=== PATIENT | male | born 1980 | race Caucasian/White ===

== ENCOUNTER 2024-01-07 08:42 | Outpatient (AMB) | payer OTHER, SELFPAY ==
[2024-01-07 08:49] VITALS: BP 130/72; PULSE 73; O2SAT 98; BMI 31.1
--- NOTE | 2024-01-07 08:49 | MHC.PC.OV ---
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 Accompanied by: Self / Same As Patient Allergies No Known Allergies Allergy (Verified 01/07/24 08:49) Medication List - Last Reconciled 01/08/24 by Jovany Renteria MD No Known Home Meds Tobacco use date assessed: 01/07/24 Dental Screening Dental Screen Date: 01/07/24 Did you have a dental visit in the last 12 months?: Yes Did you have a dental problem in the last 6 months where you did not have access to dental care?: No Was dental information given to patient?: Patient has dentist HPI new patient HPI Details healthy; has right sised temoral headaches and possible right ih PFSH Social History Housing: House Patient Tobacco Use Status: Never used Tobacco e-Cigarette/Vaping Use: Never Used Second Hand Smoke Exposure: No service: No Current occupational status: employed Cognitive needs: No Hearing needs: No Vision needs: No Questionnaire Thrive Questionnaire Date Thrive assessed: 01/07/24 AUDIT C Alcohol Use Questionnaire (AUDIT-C) 1. How often do you have a drink containing alcohol?: Never 3. How often do you have six or more drinks on one occasion?: Never Total Score: 0 EVELYN-7 AMB Questionnaire EVELYN-7 Date EVELYN - 7 assessed: 01/07/24 Feeling nervous, anxious, or on edge: 0 = Not at all Not being able to stop or control worryin = Not at all Worrying too much about different things: 0 = Not at all Trouble relaxin = Not at all Being so restless that it is hard to sit still: 0 = Not at all Becoming easily annoyed or irritable: 0 = Not at all Feeling afraid as if something awful might happen: 0 = Not at all Total EVELYN-7 score (0-4 normal; 5-9 mild; 10-14 moderate; 15-21 severe): 0 Source: Developed by Drs. Davion Katz, Cassie uEbanks, Lonny Salcedo and colleagues, with an educational simran from [employer]. Review of Systems Const Denies chills, Denies fatigue, Denies headache(s) and Denies weight loss Eyes Denies change in vision, Denies diplopia and Denies eye pain ENT Denies vertigo, Denies dizziness, Denies headache(s) and Denies nasal discharge Card Denies chest pain, Denies rapid heart rate and Denies dyspnea on exertion Resp Denies chest congestion, Denies cough, Denies pain with cough and Denies dyspnea on exertion GI Denies abdominal pain, Denies hematochezia and Denies change in bowel habits Musc Denies myalgias, Denies arthralgias and Denies joint swelling Skin/Breast Denies lesions and Denies unusual bruising Neuro Denies vertigo, Denies dizziness, Denies headache(s) and Denies focal weakness Endo Denies fatigue Physical exam (Primary Care) Vital Signs: Last Vital Signs Pulse 73 01/07/24 08:49 BP 130/72 01/07/24 08:49 Pulse Ox 98 01/07/24 08:49 Oxygen Delivery Method Room Air 01/07/24 08:49 BMI result Body Mass Index 31.1 Tobacco/Smoking Status: Tobacco use Status Tobacco use date assessed 01/07/24 01/07/24 08:50 Patient Tobacco Use Status Never used Tobacco 01/07/24 08:54 Thrive Assessment: Date of Thrive Assessment Date Thrive assessed 01/07/24 01/07/24 08:50 Const General: cooperative, healthy appearing and no acute distress Orientation/consciousness: oriented to person, oriented to place and oriented to time [facility] Head: Yes normal to inspection, Yes normocephalic and Yes atraumatic Mouth: Normal oral and palatal mucosa present and tongue normal Throat: Yes posterior oropharynx normal and Yes uvula midline Eyes General: appearance normal, both eyes and all related structures Neck Neck: Yes normal visual inspection, Yes full ROM and Yes no lymphadenopathy Thyroid: Thyroid normal Carotids: normal carotid upstroke Chest Chest palpation & inspection: normal inspection of the chest Resp Effort & Inspection: normal respiratory effort and able to speak in complete sentences Auscultation: clear to auscultation bilaterally Cardio Jugular venous distension: no JVD Palpation: normal PMI Rate: regular rate Rhythm: regular rhythm Heart sounds: S1 normal heart sound present and S2 normal heart sound present GI Other: small reducible left inguinal hernia Palpation (GI): Soft to palpation and No hepatosplenomegaly present Auscultation: normal bowel sounds General: Yes no CVA tenderness Back/Spine/Pelvis Back: no CVA tenderness Skin General skin exam: no rashes or lesions noted Neuro General: oriented to person, oriented to place and oriented to time Extrem General: Yes normal to inspection and Yes full ROM Assessment and Plan Assessment & Plan (1) Physical exam: Code(s): Z00.00 - Encounter for general adult medical examination without abnormal findings (2) Headache: Code(s): R51.9 - Headache, unspecified (3) Left inguinal hernia: Code(s): K40.90 - Unilateral inguinal hernia, without obstruction or gangrene, not specified as recurrent Orders: Orders Thyroid Stimulating Hormone 01/07/24 Z13.29 - Encounter for screening for other suspected endocrine disorder Complete Blood Count Auto Diff 01/07/24 Z13.0 - Encounter for screening for diseases of the blood and blood-forming organs and certain disorders involving the immune mechanism CT head/brain wo IV con 01/07/24 R51.9 - Headache, unspecified Comprehensive Kegley. Panel Fast 01/07/24 Z13.9 - Encounter for screening, unspecified Lipid Panel 01/07/24 Z13.220 - Encounter for screening for lipoid disorders Erythrocyte Sedimentation Rate 01/07/24 R51.9 - Headache, unspecified Referrals General Surgery Referral K40.90 - Unilateral inguinal hernia, without obstruction or gangrene, not specified as recurrent Coding Level of Care Code New Pt Prev Care 40-64y(70127) Diagnoses Physical exam Z00.00 Headache R51.9 Left inguinal hernia K40.90
== END 2024-01-07 09:26 | disposition home or self-care (01) ==
PROVIDERS: PCP Internal Medicine; Visit Provider Internal Medicine
DX: Z00.00 Encounter for general adult medical examination without abnormal findings (principal); R51.9 Headache, unspecified; K40.90 Unilateral inguinal hernia, without obstruction or gangrene, not specified as recurrent
CPT/HCPCS: 99386

== ENCOUNTER 2024-01-23 07:22 | Outpatient (REF) | payer OTHER, SELFPAY ==
--- NOTE | ~2024-01-23 | CT_ITS ---
EXAMINATION: CT HEAD WITHOUT IV CONTRAST INDICATION: Headache. COMPARISON: None available. TECHNIQUE: Multidetector CT acquisitions of the head was obtained without IV contrast. This CT examination was performed using dose optimization techniques as appropriate, variously including the following: *Automated exposure control *Adjustment of mA and/or kV according to patient size (this includes techniques or standardized protocols for targeted exams where dose is matched to indication/reason for exam; i.e. extremities or head) *Use of iterative reconstruction technique FINDINGS: There is no intracranial hemorrhage, hydrocephalus, extra-axial surface collection, midline shift, or other herniation pattern. Lakhani to white matter differentiation is diffusely maintained without evidence of an evolved acute territorial infarct. The basilar cisterns are preserved. No significant soft tissue abnormality. No acute osseous abnormality. The paranasal sinuses and the mastoid air cells are well aerated. CT/CT head/brain wo IV con IMPRESSION: No acute intracranial abnormality.
== END 2024-01-23 07:23 | disposition home or self-care (01) ==
LOC: HO.CT 07:22
PROVIDERS: PCP Internal Medicine; Visit Provider Internal Medicine
DX: R51.9 Headache, unspecified (principal)
CPT/HCPCS: 70450

== ENCOUNTER 2024-01-28 08:37 | Outpatient (AMB) | payer OTHER, SELFPAY ==
--- NOTE | 2024-01-28 08:41 | A.OFFVIS_ITS ---
Vital Signs 01/28/24 08:44 Height 6 ft 3 in Weight 247 lb BMI 30.9 BP 133/83 Blood Pressure Location Rt brachial Position Sitting Pulse 66 Intake Visit Reasons: Unilateral inguinal hernia Intake Note: Patient referred by pcp Dr. Renteria for [facility]. First noticed 2-3wks. Patient c/o: painful, uncomfortable when sitting in the car for too long. Nausea, bulging out when laying down. Monitor Worker Required: No Accompanied by: Self / Same As Patient Allergies No Known Allergies Allergy (Verified 01/28/24 08:45) HPI Comments Details: Patient presents with a several week history of left groin pain and swelling. At his place of employment, he noticed while doing heavy lifting/straining, he developed the above-mentioned symptoms. Patient states she does a fair amount of strenuous activities at his work place. Because of progression of left groin discomfort, he was seen by his medical doctor who in turn referred him to surgery for further evaluation. Patient otherwise tolerating regular diet. He is regular bowel habits. No other significant past medical or surgical history. Chart was reviewed and patient evaluated [facility] Surgical History (Updated 01/28/24 @ 08:43 by MAX Segal) History of lumbar laminectomy Social History Housing: House Patient Tobacco Use Status: Never used Tobacco e-Cigarette/Vaping Use: Never Used Second Hand Smoke Exposure: No service: No Current occupational status: employed Cognitive needs: No Hearing needs: No Vision needs: No Physical Exam Vital Signs: Last Vital Signs Pulse 66 01/28/24 08:44 BP 133/83 01/28/24 08:44 BMI result Body Mass Index 30.9 Chest Other: Chest breath sounds bilaterally, HS 1 in 2 GI Other: Patient was examined both supine and standing with Valsalva. Right groin negative. Genitalia within normal limits. Very large reducible left inguinal hernia. Assessment & Plan Assessment & Plan (1) Left inguinal hernia: Code(s): K40.90 - Unilateral inguinal hernia, without obstruction or gangrene, not specified as recurrent Category: Medical Plan Patient wishes to have his left inguinal hernia repaired. Risks, benefits, and alternatives of open left inguinal hernia repair with mesh were reviewed the patient and included but not limited to bleeding, infection, recurrence, numbness, pain, scarring and the patient wished to proceed. All questions answered. Arrangements were made for this. Coding Level of Care Code New Pt Level 5 (51593) Diagnoses Left inguinal hernia K40.90
[2024-01-28 08:44] VITALS: BP 133/83; PULSE 66; BMI 30.9
== END 2024-01-28 08:53 | disposition home or self-care (01) ==
PROVIDERS: PCP Internal Medicine; Visit Provider Surgery
DX: K40.90 Unilateral inguinal hernia, without obstruction or gangrene, not specified as recurrent (principal)
CPT/HCPCS: 99204

== ENCOUNTER → 2024-01-28 08:37 | Outpatient (BNVA) | payer OTHER, SELFPAY | PROVIDERS: PCP Internal Medicine; Visit Provider Surgery ==

== ENCOUNTER 2024-02-03 07:20 | Outpatient (REF) | payer OTHER, SELFPAY ==
[2024-02-03 10:10] LABS: MANUAL DIFF FLAG NO
[2024-02-03 10:26] LABS: Basophils Absolute Auto 0.1 X10*3/uL (0.0-0.2); Eosinophils Absolute Auto 0.4 X10*3/uL (0.0-0.4); Eosinophils Percent Auto 5.3 % (0-4); Hematocrit 43.9 % (42.0-52.0); Hemoglobin 14.6 g/dl (14.0-18.0); Imm Gran Abs Auto 0.02 X10*3/uL (0.00-0.03); Imm Gran Pct Auto 0.3 % (0.0-0.4); Lymphocytes Absolute Auto 2.4 X10*3/uL (1.2-4.9); Lymphocytes Percent Auto 32.2 % (20-40); Mean Corpuscular HGB Conc 33.3 g/dl (31.0-36.0); Mean Corpuscular Hemoglobin 30.7 pg (27.0-33.0); Mean Corpuscular Volume 92.2 fL (80.0-98.0); Mean Platelet Volume 9.7 fL (9.4-12.4); Monocytes Absolute Auto 0.7 X10*3/uL (0.1-1.2); Monocytes Percent Auto 9.4 % (2-11); Neutrophils Absolute Auto 3.8 x10*3/uL (2.0-8.3); Neutrophils Percent Auto 51.8 % (45-73); Platelet Count 285 X10*3/uL (160-400); Red Blood Count 4.76 X10*6/uL (4.60-5.80); White Blood Count 7.3 X10*3/uL (4.8-10.8)
[2024-02-03 11:09] LABS: Erythrocyte Sedimentation Rate 2 MM/HR (0-15)
[2024-02-03 11:11] LABS: Alanine Aminotransferase 37 U/L (0-40); Albumin Level 4.1 g/dL (3.5-5.0); Alkaline Phosphatase 47 U/L (39-117); Anion Gap 12 (12-20); Aspartate Amino Transferase 22 U/L (5-37); Bilirubin Total 0.4 mg/dL (0.0-1.0); Blood Urea Nitrogen 13 mg/dL (9-16); Carbon Dioxide 23 mmol/L (22-29); Chloride 108 mmol/L (96-108); Cholesterol 188 mg/dL (<200); Estimated Glomerular Filt Rate > 60; Glucose Fasting 96 mg/dL (60-99); HDL Cholesterol 43 mg/dL (>40); LDL Cholesterol Calculated 109 mg/dL (<100); Potassium 4.2 mmol/L (3.3-5.1); Sodium 139 mmol/L (135-145); Thyroid Stimulating Hormone 1.98 uIU/mL (0.32-4.0); Triglycerides 184 mg/dL (<150)
== END 2024-02-03 07:21 | disposition home or self-care (01) ==
LOC: HO.HMGCLDS 07:20
PROVIDERS: PCP Internal Medicine; Visit Provider Internal Medicine
DX: R51.9 Headache, unspecified (principal); Z13.0 Encounter for screening for diseases of the blood and blood-forming organs and certain disorders involving the immune mechanism; Z13.9 Encounter for screening, unspecified; Z13.220 Encounter for screening for lipoid disorders; Z13.29 Encounter for screening for other suspected endocrine disorder
CPT/HCPCS: 36415; 80053; 80061; 84443; 85025; 85652

== ENCOUNTER 2024-02-04 14:30 | Outpatient (AMB) | payer OTHER, SELFPAY ==
[2024-02-04 14:31] VITALS: BP 140/82; PULSE 70; O2SAT 98; BMI 31.4
--- NOTE | 2024-02-04 14:31 | A.OFFPC_ITS ---
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 Accompanied by: Self / Same As Patient Allergies No Known Allergies Allergy (Verified 02/04/24 14:32) Medication List - Last Reconciled 02/05/24 by Jovany Renteria MD No Known Home Meds Tobacco use date assessed: 01/07/24 Dental Screening Dental Screen Date: 01/07/24 HPI 4 weeks f/u HPI Details headaches; stable; labs and ct nl [facility] Surgical History (Updated 01/28/24 @ 08:43 by MAX Segal) History of lumbar laminectomy Social History Housing: House Patient Tobacco Use Status: Never used Tobacco e-Cigarette/Vaping Use: Never Used Second Hand Smoke Exposure: No service: No Current occupational status: employed Cognitive needs: No Hearing needs: No Vision needs: No Questionnaire PHQ-9 Over the last 2 weeks, how often have you been bothered by any of the following problems? 1. Little interest or pleasure in doing things: not at all 2. Feeling down, depressed, or hopeless: not at all 3. Trouble falling or staying asleep, or sleeping too much: not at all 4. Feeling tired or having little energy: not at all 5. Poor appetite or overeating: not at all 6. Feeling bad about yourself - or that you are a failure or have let yourself or your family down: not at all 7. Trouble concentrating on things, such as reading the newspaper or watching television: not at all 8. Moving or speaking so slowly that other people could have noticed. Or the opposite - being so fidgety or restless that you have been moving around a lot more than usual: not at all 9. Thoughts that you would be better off or of hurting yourself in some way: not at all Total score: 0 Source: Developed by Drs. Davion Katz, Cassie Eubanks, Lonny Salcedo and colleagues, with an educational simran from [employer]. Thrive Questionnaire Date Thrive assessed: 01/07/24 EVELYN-7 AMB Questionnaire EVELYN-7 Date EVELYN - 7 assessed: 01/07/24 Source: Developed by Drs. Davion Katz, Cassie Eubanks, Lonny Salcedo and colleagues, with an educational simran from [employer]. Review of Systems Const Denies chills, Denies headache(s) and Denies weight loss ENT Denies headache(s) Card Denies chest pain, Denies syncope, Denies irregular heart rhythm and Denies dyspnea Resp Denies chest congestion, Denies cough and Denies dyspnea GI Denies abdominal pain, Denies change in stool character, Denies nausea and Denies vomiting Musc Denies deformity and Denies joint swelling Neuro Denies syncope and Denies headache(s) Physical exam (Primary Care) Vital Signs: Last Vital Signs Pulse 70 02/04/24 14:31 BP 140/82 H 02/04/24 14:31 Pulse Ox 98 02/04/24 14:31 Oxygen Delivery Method Room Air 02/04/24 14:31 BMI result Body Mass Index 31.4 Tobacco/Smoking Status: Tobacco use Status Tobacco use date assessed 01/07/24 02/04/24 14:31 Patient Tobacco Use Status Never used Tobacco 02/04/24 14:31 e-Cigarette/Vaping Use Never Used 02/04/24 14:31 PHQ-9: PHQ-9 Score PHQ-9: Total score 0 02/04/24 14:35 Thrive Assessment: Date of Thrive Assessment Date Thrive assessed 01/07/24 02/04/24 14:31 Const General: cooperative, comfortable, no acute distress and alert Neck Neck: Yes no lymphadenopathy Thyroid: Thyroid normal Resp Effort & Inspection: normal respiratory effort Auscultation: clear to auscultation bilaterally Percussion: percussion normal Cardio Jugular venous distension: no JVD Palpation: normal PMI Rate: regular rate Rhythm: regular rhythm Heart sounds: S1 normal heart sound present and S2 normal heart sound present GI Inspection: Yes normal to inspection Palpation (GI): No hepatosplenomegaly present Skin General skin exam: no rashes or lesions noted Extrem General: Yes no clubbing, cyanosis or edema Assessment and Plan Assessment & Plan (1) Headache: Code(s): R51.9 - Headache, unspecified Plan: conservative care Coding Level of Care Code Est Pt Level 3 (32204) Diagnoses Headache R51.9
== END 2024-02-04 14:53 | disposition home or self-care (01) ==
PROVIDERS: PCP Internal Medicine; Visit Provider Internal Medicine
DX: R51.9 Headache, unspecified (principal)
CPT/HCPCS: 99213

== ENCOUNTER 2024-02-20 09:27 | Day surgery (SDC) | payer OTHER, SELFPAY ==
[2024-02-18 11:52] VITALS: BMI 31.4
--- NOTE | 2024-02-18 14:16 | HO.ANESPROP2 ---
Documented by User: Alissa Hernandez NP 02/18/24 14:17 HPI - Anesthesia Eval Consult details Narrative: 43yo M for OPEN Hernia Inguinal Reducible PMFSH Active Problems Active Problems: All Active Problems Left inguinal hernia (Acute) Headache (Acute) Physical exam (Acute) Past Medical History Medical History No pertinent past medical history Surgical History Surgical History History of lumbar laminectomy Social History Social History Housing: House Patient Tobacco Use Status: Never used Tobacco e-Cigarette/Vaping Use: Never Used Second Hand Smoke Exposure: No Advance Directives Information Provided: Yes service: No Current occupational status: employed Cognitive needs: No Hearing needs: No Vision needs: No Meds Allergies Allergy/AdvReac Type Severity Reaction Status Date / Time No Known Allergies Allergy Verified 02/20/24 09:46 Exam Height,Weight and Vital Signs: Height 6 ft 3 in Weight 113.852 kg Pertinent Lab Results Pertinent Lab Results: Laboratory Tests 02/03/24 02/03/24 07:54 07:57 WBC 7.3 Hgb 14.6 Hct 43.9 Plt Count 285 Sodium 139 Potassium 4.2 Chloride 108 Carbon Dioxide 23 BUN 13 Creatinine 0.85 Assessment and Plan Assessment Anesthesia Assessment: Chart Reviewed Documented by User: Jory Jorgensen MD 02/20/24 10:06 PMFSH Past Medical History Medical History No pertinent past medical history Surgical History Surgical History History of lumbar laminectomy History of Problems with Anesthesia: No Social History Social History Housing: House Patient Tobacco Use Status: Never used Tobacco e-Cigarette/Vaping Use: Never Used Second Hand Smoke Exposure: No Advance Directives Information Provided: Yes service: No Current occupational status: employed Cognitive needs: No Hearing needs: No Vision needs: No Meds Allergies Allergy/AdvReac Type Severity Reaction Status Date / Time No Known Allergies Allergy Verified 02/20/24 09:46 Exam Airway Mallampati Class: III TM Dist: >3cm Neck ROM: Full Loose/Missing/Broken Teeth: No Heart: RRR Lungs: CTA Assessment and Plan Assessment Anesthesia Assessment: Anesthesia Plan Discussed Final Anesthetic Review History of Problems with Anesthesia: No NPO: Yes ASA Class: I Final Preanesthetic Review: Meds/Allgs Chart Reviewed, Consent Obtained/Reviewed and Anes Risks/Benef Reviewed Patient Risk: Low Procedure Risk: Low Anesthetic Plan Anesthetic Plan: GA Disposition: Standard PACU
--- NOTE | 2024-02-19 11:33 | MHC.SHP ---
Pre-Procedural Eval Section A - 24 Hr Update-Section A only Date of Service: 02/20/24 The patient is an INPATIENT: No Changes since office visit: No Cold of Flu in the past 2 weeks, No New Medical Problems, No Changes in Medication and No Patient answered all questions Section B - Complete if H&P > 30 days Chief Complaint: Unilateral inguinal hernia, without obstruction Allergies: Allergies Allergy/AdvReac Type Severity Reaction Status Date / Time No Known Allergies Allergy Verified 02/04/24 14:32 Plan I have reviewed the history and physical and performed a pertinent physical examination on my patient. No changes have occurred unless specified. Time Spent With Patient Time: Total time managing care of this patient today ____ minutes.
[2024-02-20 09:50] VITALS: BMI 30.6
[2024-02-20 10:02] VITALS: BP 134/87; PULSE 65; RESP 16; TEMP 37.1; O2SAT 97
[2024-02-20] MEDS: Lactated Ringers 1,000 ML 100 ML IVCONT (10:23)
--- NOTE | 2024-02-20 12:45 | P.OP_ITS ---
Operative Note Operative Note Date of Service: 02/20/24 Narrative: Preoperative diagnosis: [] Large symptomatic left inguinal hernia Postop diagnosis: [] The same Procedure [] open left inguinal herniorrhaphy with Bard mesh Surgeon: [] [employer] Sales Representative: [] [place] Type of Anesthesia: [] General Indication for surgery: [] Very large indirect left inguinal hernia. No indirect hernia demonstrated. Patient is status post abdominal plasty. Modest adhesions in the left groin encountered Findings: [] Patient brought to the operating room, placed on operative table in supine position, after an adequate level of general anesthesia was induced the patient's left groin was prepped and draped in usual sterile fashion. Using part of the incision from the prior scar from the patient since previous abdominal plasty in the left lower quadrant, this carried down through skin, subcutaneous tissue, Fady's fascia. As noted above, moderate adhesions were taken down. External oblique fibers were opened their direction with care to isolate and preserve the ilioinguinal nerve throughout the procedure. Spermatic cord was identified and retracted from the field. No indirect hernia was demonstrated. A very large direct hernia was from the surrounding soft tissues and reduced. A Bard plug was placed in this defect, and sutured inferiorly to the inguinal ligament, and superiorly to the transversalis fascia using interrupted 0 Ethibond suture. At completion of procedure, mesh was in good position with no gaps or tension. Wound was irrigated, and secured hemostasis. Was closed in the following manner; external oblique fascia was reapproximated using running 2-0 Vicryl suture. Fady's fascia was closed using interrupted 3-0 Vicryl suture. Interrupted inverted deep dermal 3-0 Vicryl sutures followed by running subcuticular 4-0 Vicryl sutures were placed. Steri-Strips and sterile dressings were applied. At the beginning at the end of the case, ilioinguinal block was performed using 0.5% Marcaine as well as local infiltration of the incision. Sponge, needle, and instrument counts were reported correct. Patient tolerated the procedure well and emerged from anesthesia stable condition. EBL minimal
[2024-02-20 12:58] VITALS: BP 146/81; PULSE 70; RESP 18; TEMP 36.1; O2SAT 100
[2024-02-20 13:03] VITALS: BP 126/82; PULSE 69; RESP 16; O2SAT 100
[2024-02-20 13:08] VITALS: BP 130/90; PULSE 65; RESP 16; O2SAT 100
[2024-02-20 13:13] VITALS: BP 141/87; PULSE 66; RESP 16; O2SAT 100
[2024-02-20 13:28] VITALS: BP 130/87; PULSE 62; RESP 16; TEMP 36.4; O2SAT 100
== END 2024-02-20 14:00 | disposition home or self-care (01) ==
PROVIDERS: PCP Internal Medicine; Visit Provider Surgery
PROC: (CPT 49505; principal; 2024-02-20 11:30)
DX: K40.90 Unilateral inguinal hernia, without obstruction or gangrene, not specified as recurrent (principal); K66.0 Peritoneal adhesions (postprocedural) (postinfection); Z98.890 Other specified postprocedural states
CPT/HCPCS: 49505; C1781; J0131; J0690; J1100; J1885; J2250; J2405; J2704; J2795; J3010

== ENCOUNTER → 2024-02-20 09:27 | Outpatient (BNV) | payer OTHER, SELFPAY | PROVIDERS: PCP Internal Medicine; Visit Provider Surgery | DX: K40.90 Unilateral inguinal hernia, without obstruction or gangrene, not specified as recurrent (principal) | CPT/HCPCS: 49505 ==

== ENCOUNTER 2024-03-01 10:45 | Outpatient (AMB) | payer OTHER, SELFPAY ==
--- NOTE | 2024-03-01 10:49 | A.OFFVIS_ITS ---
Intake Visit Reasons: S/P LIH w/mesh Intake Note: Patient is seen in office for post op assessment post left inguinal hernia repair. Pt c/o: pain at surgical site. Finished rx pain meds. Taking ibuprofen. 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 He has no wound issues or complaints. He is tolerating a diet. Having regular bowel habits. He is increasing his activity level. He would like to commence work after another week off. [facility] Medical History No pertinent past medical history Surgical History History of left inguinal hernia repair (02/20/24) History of lumbar laminectomy Social History Housing: House Patient Tobacco Use Status: Never used Tobacco e-Cigarette/Vaping Use: Never Used Second Hand Smoke Exposure: No service: No Current occupational status: employed Cognitive needs: No Hearing needs: No Vision needs: No Physical Exam GI Other: Abdomen is soft. Wound clean dry and intact Assessment & Plan Assessment & Plan (1) Postoperative hernia: Code(s): K43.2 - Incisional hernia without obstruction or gangrene Category: Surgical Plan Patient will be given a week off note and then to resume with 3 weeks light duty. All questions answered. He will otherwise follow-up p.r.n.. He also been given local wound instructions. Coding Level of Care Code Global (83776) Diagnoses Postoperative hernia K43.2
== END 2024-03-01 10:57 | disposition home or self-care (01) ==
PROVIDERS: PCP Internal Medicine; Visit Provider Surgery
DX: K43.2 Incisional hernia without obstruction or gangrene (principal)
CPT/HCPCS: 99024

== ENCOUNTER → 2024-03-01 10:45 | Outpatient (BNVA) | payer OTHER, SELFPAY | PROVIDERS: PCP Internal Medicine; Visit Provider Surgery ==

== ENCOUNTER 2024-03-23 10:19 | Outpatient (AMB) | payer OTHER, SELFPAY ==
[2024-03-23 10:27] VITALS: BP 130/84; PULSE 80
--- NOTE | 2024-03-23 10:27 | MHC.OFFVIS ---
Vital Signs 03/23/24 10:27 Weight 242 lb BP 130/84 Blood Pressure Location Rt brachial Position Sitting Pulse 80 Intake Visit Reasons: S/p hernia- reinjured @ work Intake Note: Patient scheduled as urgent appointment. Reports re- injured hernia incision at work. Patient c/o: pain with walking, stretching, changing positions sitting, standing, laying. Only taking ibuprofen HX: LIH repair on 02-20-2024. 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 He sustained a fall at work down stairs. He has a few weeks status post left groin hernia repair. He is having left incisional/groin discomfort as well as back discomfort. He is otherwise tolerating a diet, having regular bowel habits. Patient is well known to me. [facility] Medical History No pertinent past medical history Surgical History History of left inguinal hernia repair (02/20/24) History of lumbar laminectomy Social History Housing: House Patient Tobacco Use Status: Never used Tobacco e-Cigarette/Vaping Use: Never Used Second Hand Smoke Exposure: No service: No Current occupational status: employed Cognitive needs: No Hearing needs: No Vision needs: No Physical Exam Vital Signs: Last Vital Signs Pulse 80 03/23/24 10:27 BP 130/84 03/23/24 10:27 GI Other: Patient was examined both supine and standing with Valsalva. Left groin incision/hernia repair site clean dry and intact with no evidence of recurrence or infection. Abdomen otherwise benign. Assessment & Plan Assessment & Plan (1) Status post fall: Code(s): Z91.81 - History of falling Category: Surgical Plan Patient will be given a script for Motrin, 2 weeks out of work note and then 2 week light duty. Also arrange for made for back surgeon for evaluation of his back issues. Patient should avoid strenuous activities, ice or warm compresses to symptomatic areas. He will otherwise follow with me p.r.n.. All questions answered. Also discussed with Jeff in the office regarding workman's comp questions. Medications: New ibuprofen 800 mg PO Q8H PRN 30 tabs 0RF pain Coding Level of Care Code Est Pt Level 4 (25721) Diagnoses Status post fall Z91.81
== END 2024-03-23 10:40 | disposition home or self-care (01) ==
PROVIDERS: PCP Internal Medicine; Visit Provider Surgery
DX: Z09 Encounter for follow-up examination after completed treatment for conditions other than malignant neoplasm (principal); Z91.81 History of falling
CPT/HCPCS: 99024

== ENCOUNTER → 2024-03-23 10:19 | Outpatient (BNVA) | payer OTHER, SELFPAY | PROVIDERS: PCP Internal Medicine; Visit Provider Surgery ==

== ENCOUNTER 2024-03-26 08:39 | Outpatient (AMB) | payer OTHER, SELFPAY ==
[2024-03-26 08:41] VITALS: BP 142/78; PULSE 98; O2SAT 97; BMI 29.7
--- NOTE | 2024-03-26 08:41 | MHC.PC.OV ---
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 Allergies No Known Allergies Allergy (Verified 03/26/24 08:43) Medication List - Last Reconciled 03/26/24 by Jovany Renteria MD ibuprofen 800 mg PO Q8H PRN Tobacco use date assessed: 01/07/24 Dental Screening Dental Screen Date: 01/07/24 HPI Patient fall HPI Details fell last week and injured lower back; has bilat paralumbar pain and burning down posterior left leg to mid thigh PFSH Medical History No pertinent past medical history Surgical History History of left inguinal hernia repair (02/20/24) History of lumbar laminectomy Social History Housing: House Patient Tobacco Use Status: Never used Tobacco Tobacco use type: Cigarette e-Cigarette/Vaping Use: Never Used Second Hand Smoke Exposure: No service: No Current occupational status: employed Cognitive needs: No Hearing needs: No Vision needs: No Questionnaire PHQ-9 Over the last 2 weeks, how often have you been bothered by any of the following problems? 1. Little interest or pleasure in doing things: not at all 2. Feeling down, depressed, or hopeless: not at all 3. Trouble falling or staying asleep, or sleeping too much: not at all 4. Feeling tired or having little energy: not at all 5. Poor appetite or overeating: not at all 6. Feeling bad about yourself - or that you are a failure or have let yourself or your family down: not at all 7. Trouble concentrating on things, such as reading the newspaper or watching television: not at all 8. Moving or speaking so slowly that other people could have noticed. Or the opposite - being so fidgety or restless that you have been moving around a lot more than usual: not at all 9. Thoughts that you would be better off or of hurting yourself in some way: not at all Total score: 0 Source: Developed by Drs. Davion Katz, Lonny Estes and colleagues, with an educational simran from [employer]. Thrive Questionnaire Date Thrive assessed: 01/07/24 AUDIT C Alcohol Use Questionnaire (AUDIT-C) 1. How often do you have a drink containing alcohol?: Never 3. How often do you have six or more drinks on one occasion?: Never Total Score: 0 EVELYN-7 AMB Questionnaire EVELYN-7 Date EVELYN - 7 assessed: 01/07/24 Source: Developed by Drs. Davion Katz, Cassie Eubanks, Lonny Salcedo and colleagues, with an educational simran from [employer]. Review of Systems Const Denies chills, Denies headache(s) and Denies weight loss ENT Denies headache(s) Card Denies chest pain, Denies syncope, Denies irregular heart rhythm and Denies dyspnea Resp Denies chest congestion, Denies cough and Denies dyspnea GI Denies abdominal pain, Denies change in stool character, Denies nausea and Denies vomiting Musc Denies deformity and Denies joint swelling Neuro Denies syncope and Denies headache(s) Physical exam (Primary Care) Vital Signs: Last Vital Signs Pulse 98 03/26/24 08:41 BP 142/78 H 03/26/24 08:41 Pulse Ox 97 03/26/24 08:41 Oxygen Delivery Method Room Air 03/26/24 08:41 BMI result Body Mass Index 29.7 Tobacco/Smoking Status: Tobacco use Status Tobacco use date assessed 01/07/24 03/26/24 08:45 Patient Tobacco Use Status Never used Tobacco 03/26/24 08:45 Tobacco use type Cigarette 03/26/24 08:45 e-Cigarette/Vaping Use Never Used 03/26/24 08:45 PHQ-9: PHQ-9 Score PHQ-9: Total score 0 03/26/24 08:45 Thrive Assessment: Date of Thrive Assessment Date Thrive assessed 01/07/24 03/26/24 08:45 Const General: cooperative, comfortable, no acute distress and alert Neck Neck: Yes no lymphadenopathy Thyroid: Thyroid normal Resp Effort & Inspection: normal respiratory effort Auscultation: clear to auscultation bilaterally Percussion: percussion normal Cardio Jugular venous distension: no JVD Palpation: normal PMI Rate: regular rate Rhythm: regular rhythm Heart sounds: S1 normal heart sound present and S2 normal heart sound present GI Inspection: Yes normal to inspection Palpation (GI): No hepatosplenomegaly present Skin General skin exam: no rashes or lesions noted Extrem General: Yes no clubbing, cyanosis or edema Assessment and Plan Assessment & Plan (1) Lumbar strain: Code(s): S39.012A - Strain of muscle, fascia and tendon of lower back, initial encounter Plan: rx sent; heat; fu i1 week Medications: New cyclobenzaprine 10 mg PO TID PRN 30 tabs 2RF muscle spasm oxycodone Partial Fill upon patient request. 5 mg PO Q4H PRN 20 tabs 0RF pain Coding Level of Care Code Est Pt Level 3 (84125) Diagnoses Lumbar strain S39.012A
== END 2024-03-26 09:11 | disposition home or self-care (01) ==
PROVIDERS: PCP Internal Medicine; Visit Provider Internal Medicine
DX: S39.012A Strain of muscle, fascia and tendon of lower back, initial encounter (principal)
CPT/HCPCS: 99213

== ENCOUNTER 2024-04-07 09:43 | Outpatient (AMB) | payer OTHER, SELFPAY ==
[2024-04-07 09:46] VITALS: BP 144/90; PULSE 113; O2SAT 98; BMI 29.1
--- NOTE | 2024-04-07 09:46 | A.OFFPC_ITS ---
Vital Signs 04/07/24 09:46 Height 6 ft 3 in Weight 233 lb BMI 29.1 BP 144/90 H Blood Pressure Location Lt brachial Position Sitting Pulse 113 H Pulse Source Pulse Oximeter Pulse Oximetry (%) 98 Oxygen Delivery Method Room Air Intake Visit Reasons: follow up Allergies No Known Allergies Allergy (Verified 04/07/24 09:46) Medication List - Last Reconciled 04/07/24 by Jovany Renteria MD cyclobenzaprine 10 mg PO TID PRN hydrocodone-acetaminophen 7.5-325 mg 1 tab PO Q4-6H PRN ibuprofen 800 mg PO Q8H PRN oxycodone 5 mg PO Q4H PRN Tobacco use date assessed: 01/07/24 Dental Screening Dental Screen Date: 01/07/24 HPI follow up HPI Details continues with severe LLL pain radiating down posterior left leg to knee PFSH Medical History No pertinent past medical history Surgical History History of left inguinal hernia repair (02/20/24) History of lumbar laminectomy Social History Housing: House Patient Tobacco Use Status: Never used Tobacco Tobacco use type: Cigarette e-Cigarette/Vaping Use: Never Used Second Hand Smoke Exposure: No service: No Current occupational status: employed Cognitive needs: No Hearing needs: No Vision needs: No Questionnaire PHQ-9 Over the last 2 weeks, how often have you been bothered by any of the following problems? 1. Little interest or pleasure in doing things: not at all 2. Feeling down, depressed, or hopeless: not at all 3. Trouble falling or staying asleep, or sleeping too much: not at all 4. Feeling tired or having little energy: not at all 5. Poor appetite or overeating: not at all 6. Feeling bad about yourself - or that you are a failure or have let yourself or your family down: not at all 7. Trouble concentrating on things, such as reading the newspaper or watching television: not at all 8. Moving or speaking so slowly that other people could have noticed. Or the opposite - being so fidgety or restless that you have been moving around a lot more than usual: not at all 9. Thoughts that you would be better off or of hurting yourself in some way: not at all Total score: 0 Source: Developed by Drs. Davion Katz, Cassie Eubanks, Lonny Salcedo and colleagues, with an educational simran from [employer]. Thrive Questionnaire Date Thrive assessed: 01/07/24 AUDIT C Alcohol Use Questionnaire (AUDIT-C) 1. How often do you have a drink containing alcohol?: Never 3. How often do you have six or more drinks on one occasion?: Never Total Score: 0 EVELYN-7 AMB Questionnaire EVELYN-7 Date EVELYN - 7 assessed: 01/07/24 Source: Developed by Drs. Davion Katz, Cassie Eubanks, Lonny Salcedo and colleagues, with an educational simran from [employer]. Review of Systems Const Denies chills, Denies headache(s) and Denies weight loss ENT Denies headache(s) Card Denies chest pain, Denies syncope, Denies irregular heart rhythm and Denies dyspnea Resp Denies chest congestion, Denies cough and Denies dyspnea GI Denies abdominal pain, Denies change in stool character, Denies nausea and Denies vomiting Musc Denies deformity and Denies joint swelling Neuro Denies syncope and Denies headache(s) Physical exam (Primary Care) Vital Signs: Last Vital Signs Pulse 113 H 04/07/24 09:46 BP 144/90 H 04/07/24 09:46 Pulse Ox 98 04/07/24 09:46 Oxygen Delivery Method Room Air 04/07/24 09:46 BMI result Body Mass Index 29.1 Tobacco/Smoking Status: Tobacco use Status Tobacco use date assessed 01/07/24 04/07/24 09:47 Patient Tobacco Use Status Never used Tobacco 04/07/24 09:47 Tobacco use type Cigarette 04/07/24 09:47 e-Cigarette/Vaping Use Never Used 04/07/24 09:47 PHQ-9: PHQ-9 Score PHQ-9: Total score 0 04/07/24 09:47 Thrive Assessment: Date of Thrive Assessment Date Thrive assessed 01/07/24 04/07/24 09:47 Const General: cooperative, comfortable, no acute distress and alert Neck Neck: Yes no lymphadenopathy Thyroid: Thyroid normal Resp Effort & Inspection: normal respiratory effort Auscultation: clear to auscultation bilaterally Percussion: percussion normal Cardio Jugular venous distension: no JVD Palpation: normal PMI Rate: regular rate Rhythm: regular rhythm Heart sounds: S1 normal heart sound present and S2 normal heart sound present GI Inspection: Yes normal to inspection Palpation (GI): No hepatosplenomegaly present Skin General skin exam: no rashes or lesions noted Extrem General: Yes no clubbing, cyanosis or edema Assessment and Plan Assessment & Plan (1) Lumbar radiculopathy: Code(s): M54.16 - Radiculopathy, lumbar region Plan: stat MRI; patient in severe pain; rx sent Orders: Orders MR lumbar spine wo con Today M54.16 - Radiculopathy, lumbar region Medications: Refilled cyclobenzaprine 10 mg PO TID PRN 30 tabs 2RF muscle spasm hydrocodone-acetaminophen 7.5-325 mg Partial Fill upon patient request. 1 tab PO Q4-6H PRN 20 tabs 0RF pain Coding Level of Care Code Est Pt Level 3 (04749) Diagnoses Lumbar radiculopathy M54.16
== END 2024-04-07 10:23 | disposition home or self-care (01) ==
LOC: HO.HMGH 09:43
PROVIDERS: PCP Internal Medicine; Visit Provider Internal Medicine
DX: M54.16 Radiculopathy, lumbar region (principal)
CPT/HCPCS: 99213